=== PATIENT | male | born 1965 | race Hispanic/Latino ===

== ENCOUNTER 2022-01-01 09:39 | Emergency (ER) | payer OTHER ==
[2022-01-01] MEDS ORDERED: LIDOCAINE 1% W/EPI 1:100,000 MDV 50 ML VIAL ONE (10:51)
--- NOTE | 2022-01-01 14:25 | EDPHYS ---
Physician Documentation [facility] Name: Mayito Soliz Jr Age: 56 yrs Sex: Male : 1965 Arrival Date: 01/01/2022 Time: 09:43 Bed 24 Private MD: MEHDI Physician Zachery Ferris HPI: 01/01 10:10 This 56 yrs old Male presents to ER via Ambulatory with complaints of SWOLLEN jmm GROIN. 10:10 the patient presents with a swollen area of the pelvis. Onset: The symptoms/episode jmm began/occurred gradually, 1 week(s) ago. Possible cause(s): unknown. Associated signs and symptoms: Pertinent positives: discharge, drainage, erythema, Pertinent negatives:. Modifying factors: the symptoms are alleviated by nothing, the symptoms are aggravated by nothing. This is a 56-year-old male with history of diabetes mellitus, hypertension the presents emerged part with complaints of left groin pain began approximately 1 week ago. Patient states he has had similar episodes in the past but this episode is the worst. Denies fever or chills.. Historical: - Allergies: 09:55 No Known Allergies; ll1 - PMHx: 09:55 Diabetes mellitus; Hypertensive disorder; ll1 - PSHx: 09:55 heart stent; ll1 - Immunization history:: Adult Immunizations up to date, Client reports receiving the 2nd dose of the Covid vaccine. - Social history:: Smoking status: Patient reports the use of cigarette tobacco products, smokes one-half pack cigarettes per day. ROS: 10:10 Constitutional: Negative for fever, chills, and weight loss, Cardiovascular: Negative jmm for chest pain, palpitations, and edema, Respiratory: Negative for shortness of breath, cough, wheezing, and pleuritic chest pain. 10:10 Skin: Positive for swelling. 10:10 All other systems are negative. Exam: 10:10 Constitutional: This is a well developed, well nourished patient who is awake, alert, jmm and in no acute distress. Head/Face: atraumatic. Eyes: EOMI, no conjunctival erythema appreciated ENT: Moist Mucus Membranes Neck: Trachea midline, Supple Chest/axilla: Normal chest wall appearance and motion. Cardiovascular: Regular rate and rhythm. No edema appreciated Respiratory: Normal respirations, no respiratory distress appreciated Abdomen/GI: Non distended, soft Vital Signs: 09:55 BP 164 / 97; Pulse 104; Resp 17; Temp 98.7; Pulse Ox 100% ; Weight 113.4 kg; Height 6 ll1 ft. 2 in. (187.96 cm); Pain 10/10; 10:36 BP 144 / 95; Pulse 100; Resp 18; Pulse Ox 97% on R/A; Pain 10/10; ab2 11:27 BP 169 / 106; Pulse 95; Resp 16; Pulse Ox 98% on R/A; ab2 12:41 BP 158 / 88; Pulse 95; Resp 16; Pulse Ox 98% on R/A; ab2 13:17 BP 167 / 105; Pulse 99; Resp 18; Pulse Ox 98% on R/A; ab2 14:29 BP 153 / 95; Pulse 96; Resp 18; Pulse Ox 100% on R/A; ab2 09:55 Body Mass Index 32.10 (113.40 kg, 187.96 cm) ll1 Procedures: 16:34 I \T\ D: Incision and drainage was performed for an abscess of the pelvis Prepped with [facility] Betadine, Anesthetized with 5 ml's 1% Lidocaine w/ Epi. Incised with #11 blade. Drained large amount purulent fluid. Loculations removed. Packed with iodoform gauze, Dressing: sterile 4x4 gauze, the patient tolerated the procedure well. MDM: 10:10 Patient medically screened. [facility] 16:34 Data reviewed: vital signs, nurses notes. [facility] 16:35 Counseling: I had a detailed discussion with the patient and/or guardian regarding: the [facility] historical points, exam findings, and any diagnostic results supporting the discharge/admit diagnosis, the need for outpatient follow up, to return to the emergency department if symptoms worsen or persist or if there are any questions or concerns that arise at home. Administered Medications: 14:29 Drug: Lidocaine-Epinephrine -1%: (1:100,000) 20 ml {Note: Used by ALAINA Richter during ab2 I\T\D.} Volume: 20 ml; Route: Infiltration; 14:32 Follow up: Response: No adverse reaction ab2 Disposition Summary: 01/01/22 14:24 Discharge Ordered Location: Home [facility] Condition: Stable [facility] Diagnosis - Cutaneous Abscess of the Left Groin jmm Followup: jmm - With: Edmond Lemus MD - When: 2 - 3 days - Reason: Recheck today's complaints, Continuance of care, Re-evaluation by your physician Discharge Instructions: - Discharge Summary Sheet jmm - Skin Abscess jmm - Incision and Drainage, Care After jmm Forms: - Medication Reconciliation Form jmm - Thank You Letter jmm - Antibiotic Education jmm - Prescription Opioid Use jmm - Work release form ab2 Prescriptions: - Ultracet 37.5-325 mg Oral Tablet - take 1 tablet by ORAL route every 6 hours - for up to 5 days; do not exceed 8 jmm tablets per day.; 12 tablet; Refills: 0, Product Selection Permitted - Doxycycline Hyclate 100 mg Oral Tablet - take 1 tablet by ORAL route every 12 hours; 20 tablet; Refills: 0, Product jmm Selection Permitted Signatures: Zachery Ferris MD MD cha Mickail, Joel, PA PA jmm Lewis, Lynsay, RN RN ll1 Mohan Gonzalez ab2
--- NOTE | 2022-01-01 14:25 | ER ---
Nurse's Notes [facility] Name: Mayito Soliz Jr Age: 56 yrs Sex: Male : 1965 Arrival Date: 01/01/2022 Time: 09:43 Bed 24 Private MD: Diagnosis: Cutaneous Abscess of the Left Groin Presentation: 01/01 09:50 Risk Assessment: Do you want to hurt yourself or someone else? Patient reports no ll1 desire to harm self or others. 09:55 Chief complaint: Patient states: Site to L side of groin is red, swollen, hot to touch, ll1 tender for 4-5 days. Getting progressively worse. No drainage or fever. Coronavirus screen: Vaccine status: Patient reports receiving the 2nd dose of the covid vaccine. Client denies travel out of the [place] in the last 14 days. At this time, the client does not indicate any symptoms associated with coronavirus-19. Ebola Screen: Patient denies travel to an Ebola-affected area in the 21 days before illness onset. Initial Sepsis Screen: Does the patient meet any 2 criteria? HR > 90 bpm. No. Patient's initial sepsis screen is negative. Does the patient have a suspected source of infection? Yes: Skin breakdown/wound. Onset of symptoms was December 28, 2021. 09:55 Method Of Arrival: Ambulatory ll1 09:55 Acuity: BRIDGET 4 ll1 Triage Assessment: 10:00 General: Appears uncomfortable, Behavior is calm, cooperative, appropriate for age. ll1 Pain: Complains of pain in L groin. Derm: Abscess located on L groin. Historical: - Allergies: 09:55 No Known Allergies; ll1 - PMHx: 09:55 Diabetes mellitus; Hypertensive disorder; ll1 - PSHx: 09:55 heart stent; ll1 - Immunization history:: Adult Immunizations up to date, Client reports receiving the 2nd dose of the Covid vaccine. - Social history:: Smoking status: Patient reports the use of cigarette tobacco products, smokes one-half pack cigarettes per day. Screenin:36 Abuse screen: Denies threats or abuse. Denies injuries from another. Nutritional ab2 screening: No deficits noted. Tuberculosis screening: No symptoms or risk factors identified. Fall Risk None identified. Assessment: 10:35 General: Appears in no apparent distress. comfortable, Behavior is calm, cooperative, ab2 appropriate for age. Pain:. 10:35 Pain: Complains of pain in medial aspect of left thigh Pain currently is 10 out of 10 ab2 on a pain scale. Neuro: Level of Consciousness is awake, alert, obeys commands, Oriented to person, place, time, situation, Appropriate for age Guest Relation Officer are equal bilaterally Moves all extremities. Gait is steady, Speech is normal. Cardiovascular: No deficits noted. Denies chest pain, shortness of breath, Heart tones S1 S2 present Patient's skin is warm and dry. Respiratory: Airway is patent Respiratory effort is even, unlabored, Respiratory pattern is regular, symmetrical. GI: No deficits noted. No signs and/or symptoms were reported involving the gastrointestinal system. Abdomen is round non-distended, Bowel sounds present X 4 quads. : No deficits noted. No signs and/or symptoms were reported regarding the genitourinary system. EENT: No deficits noted. No signs and/or symptoms were reported regarding the EENT system. Derm: Skin is pink, warm \T\ dry. Musculoskeletal: No deficits noted. No signs and/or symptoms reported regarding the musculoskeletal system. 12:41 Reassessment: Patient appears in no apparent distress at this time. ALAINA Richter at ab2 bedside for I\T\D. 13:17 Reassessment: Patient appears in no apparent distress at this time. No changes from ab2 previously documented assessment. Patient states symptoms have improved. Vital Signs: 09:55 BP 164 / 97; Pulse 104; Resp 17; Temp 98.7; Pulse Ox 100% ; Weight 113.4 kg; Height 6 ll1 ft. 2 in. (187.96 cm); Pain 10/10; 10:36 BP 144 / 95; Pulse 100; Resp 18; Pulse Ox 97% on R/A; Pain 10/10; ab2 11:27 BP 169 / 106; Pulse 95; Resp 16; Pulse Ox 98% on R/A; ab2 12:41 BP 158 / 88; Pulse 95; Resp 16; Pulse Ox 98% on R/A; ab2 13:17 BP 167 / 105; Pulse 99; Resp 18; Pulse Ox 98% on R/A; ab2 14:29 BP 153 / 95; Pulse 96; Resp 18; Pulse Ox 100% on R/A; ab2 09:55 Body Mass Index 32.10 (113.40 kg, 187.96 cm) ll1 ED Course: 09:43 Patient arrived in ED. kz 09:49 Arm band placed on. ll1 09:55 Patient placed in an exam room, on a stretcher. ll1 10:00 Triage completed. ll1 10:09 Ilia Richter PA is PHCP. [facility] 10:09 Zachery Ferris MD is Attending Physician. [facility] 10:32 Mohan Gonzalez is Primary Nurse. ab2 10:36 Patient has correct armband on for positive identification. Bed in low position. Call ab2 light in reach. Side rails up X2. Adult w/ patient. 10:36 No provider procedures requiring assistance completed. ab2 14:23 Edmond Lemus MD is Referral Physician. [facility] 14:30 Patient did not have IV access during this emergency room visit. ab2 Administered Medications: 14:29 Drug: Lidocaine-Epinephrine -1%: (1:100,000) 20 ml {Note: Used by ALAINA Richter during ab2 I\T\D.} Volume: 20 ml; Route: Infiltration; 14:32 Follow up: Response: No adverse reaction ab2 Outcome: 14:24 Discharge ordered by . [facility] 14:30 Discharged to home ambulatory, with family. ab2 14:30 Condition: good 14:30 Discharge instructions given to patient, family, Instructed on medication usage, Demonstrated understanding of instructions, follow-up care, medications, Prescriptions given X 2. 14:32 Patient left the ED. ab2 Signatures: Ilia Richter PA PA jmm Lewis, Lynsay, RN RN 1 Mohan Gonzalez ab2 Jessica Fisher
[2022-01-01 14:54] VITALS: TEMP 98.7
[2022-01-01 15:01] VITALS: BP 153/95; O2SAT 100
== END 2022-01-01 14:32 | disposition home or self-care (01) ==
LOC: ER 09:39
PROC: 0J9C0ZZ Drainage of Pelvic Region Subcutaneous Tissue and Fascia, Open Approach (ICD-10-PCS; principal; 2022-01-01)
DX: L02.214 Cutaneous abscess of groin (principal); I10 Essential (primary) hypertension; E11.9 Type 2 diabetes mellitus without complications; F17.210 Nicotine dependence, cigarettes, uncomplicated; Z95.818 Presence of other cardiac implants and grafts
CPT/HCPCS: 99283